=== PATIENT | male | born 1945 | race Caucasian/White ===

== ENCOUNTER 2016-11-11 21:03 | Emergency (ER) | payer OTHER ==
[~2016-11-11] VITALS: Ht 165.1 cm; Wt 73.0 kg
[2016-11-11 22:13] VITALS: Ht 165.1 cm; Wt 73.0 kg
[2016-11-12] MEDS ORDERED: GABA100C14 PO (00:13)
[2016-11-12] MEDS ORDERED: GLIP5TAB13 PO (00:13)
[2016-11-12] MEDS ORDERED: METF500T4 PO (00:13)
[2016-11-12] MEDS ORDERED: LOSA25TA5 PO (00:13)
--- NOTE | 2016-11-12 00:14 | ERD ---
ER Documentation Chief Complaint Date/Time DATE: 11/12/16 TIME: 00:11 Chief Complaint right eye redness with green discharge since last night, cough x 1 wk HPI 71-year-old male presents to emergency department for multiple complaints. Patient is complaining of right eye redness with discharge from the right eye, started yesterday, patient denies any eye pain. Patient woke up this morning with both eyes stuck together. Patient denies any foreign body sensation in the eye. Patient denies any vision changes. Patient did not have any trauma in the eye. Patient is complaining of dry cough for one, does not cough up any phlegm or blood. Patient does not have any chest pain or palpitations. Patient does not have any shortness breath or wheezing. Patient does not have any fever or chills. Patient does not have any leg swelling. Patient did not take any medication stop and symptoms. ROS All systems reviewed and are negative except as per history of present illness. Medications Home Meds Reported Medications Gabapentin* (Gabapentin*) Unknown Strength Capsule, PO TID, #180 CAP 11/12/16 Losartan Potassium* (Losartan Potassium*) Unknown Strength Tablet, PO DAILY, TAB 11/12/16 Glipizide* (Glipizide*) Unknown Strength Tablet, PO BID, TAB 11/12/16 Metformin* (Glucophage*) Unknown Strength Tab, PO BID, #20 TAB 11/12/16 Allergies Allergies: Coded Allergies: codeine (Unverified Allergy, Mild, ANXIETY, 11/11/16) PMhx/Soc History of Surgery: Yes (hernia repair, TURP) Hx Cardiac Disorders: Yes (hypertension) Hx Miscellaneous Medical Probl: Yes (diabetes) FmHx Family History: No coronary disease, No diabetes, No other Physical Exam Vitals Vital Signs Date Time Temp Pulse Resp B/P Pulse Ox O2 Delivery O2 Flow Rate FiO2 11/11/16 22:13 97.6 85 20 159/74 97 Physical Exam GENERAL: The patient is well developed and appropriate for usual state of health, in no apparent distress. HEENT: Atraumatic. Right eye conjunctiva is noted to be injected and erythematous with purulent discharge from the right eye, no tearing noted. Left eye conjunctiva is normal. Bilateral eyes are PERRL EOM intact. Ears: Normal tympanic membrane, no erythema or bulging. No ear canal swelling. No ear discharge. Nose: Erythematous nasal turbinates with clear nasal discharge. Throat: oropharynx erythematous with postnasal drip. No tonsillar swelling or tonsillar exudates. No lymphadenopathy. CHEST: Clear to auscultation bilaterally. There are no rales, wheezes or rhonchi. HEART: Regular rate and rhythm. No murmurs, clicks, rubs or gallops. No S3 or S4. ABDOMEN: Soft, nontender and nondistended. Good bowel sounds. No rebound or guarding. No gross peritonitis. No gross organomegaly or masses. No Santizo sign or McBurney point tenderness. BACK: No midline or flank tenderness. EXTREMITIES: Equal pulses bilaterally. There is no peripheral clubbing, cyanosis or edema. No focal swelling or erythema. Full range of motion. Grossly neurovascularly intact. NEURO: Alert and oriented. Cranial nerves 2-12 intact. Motor strength in all 4 extremities with 5/5 strength. Sensation grossly intact. Normal speech and gait. SKIN: There is no apparent rash or petechia. The skin is warm and dry. HEMATOLOGIC AND LYMPHATIC: There is no evidence of excessive bruising or lymphedema. No gross cervical, axillary, or inguinal lymphadenopathy. Results 24 hrs PROCEDURE: XR Chest. CLINICAL INDICATION: Cough. TECHNIQUE: PA and Lateral views of the chest were obtained. COMPARISON: None. FINDINGS: Cardiomegaly and atherosclerotic calcifications in the thoracic aorta. Likely degree of hyperinflation of COPD with changes of centrolobular emphysema. The lungs are otherwise clear. No signs of pleural fluid or pneumothorax are seen. The osseous structures and soft tissues are unremarkable. IMPRESSION: 1. Cardiomegaly and atherosclerotic calcifications in the thoracic aorta. 2. Otherwise, no evidence for active cardiopulmonary disease. RPTAT: [facility] Physician bEer Date Time Electronically viewed and signed by Physician Eber on 11/12/2016 00:36 RS/ CC: DANITA JORDAN CONCESSION MANAGER Procedures/MDM Medical Decision Making: Patient symptoms are most likely consistent with acute bronchitis, which viral in origin. But infection, considering patient is diabetic high-risk patient, patient will be treated with azithromycin. There is low suspicion for Pneumonia at this time since patients lungs sounds are clear, patient O2 saturation is normal and patient doesnt show any respiratory distress. Patients chest xray doesnt show infiltrates or any other cardiopulmonary emergencies at this time. There is low suspicion for other cardiopulmonary emergencies at this time such as CHF, Pulmonary Embolism, Pneumothorax, Aortic Aneurysm or any other cardiopulmonary emergencies at this time. There is low suspicion for sepsis. Patient appears well and is hemodynamically stable. Fever is controlled with medicines. Patient's right eye redness most likely consistent with acute bacterial conjunctivitis, no foreign body sensation, no symptoms of any eye emergencies, patient does not have any vision changes. Disposition: Home. Condition: Stable Prescriptions: Polytrim eyedrops, guaifenesin DM, Zyrtec, albuterol, azithromycin Instructions: Patient is advised to take medications as prescribed. Patient is advised to rest. Patient advised to increase fluid intake, do humidifier at home and if possible, do salt water gargles. Patient is advised that if symptoms are worse, shortness of breath, uncontrolled fever, stridor, vomiting, worst signs and symptoms to return to emergency department immediately. Otherwise, patient is advised to follow up with primary doctor in 5-7 days. Departure Diagnosis: Primary Impression: Acute bronchitis Bronchitis organism: unspecified organism Qualified Code: J20.9 - Acute bronchitis, unspecified organism Additional Impression: Acute bacterial conjunctivitis of right eye Condition: Stable Patient Instructions: Bronchitis, Antiobiotic Treatment (Adult), Conjunctivitis , Bacterial Additional Instructions: Patient is advised to take medications as prescribed. Patient is advised to rest. Patient advised to increase fluid intake, do humidifier at home and if possible, do salt water gargles. Patient is advised that if symptoms are worse, shortness of breath, uncontrolled fever, stridor, vomiting, worst signs and symptoms to return to emergency department immediately. Otherwise, patient is advised to follow up with primary doctor in 5-7 days. DANITA JORDAN NP Nov 12, 2016 00:14
--- NOTE | 2016-11-12 00:37 | RADRPT ---
PROCEDURE: XR Chest. CLINICAL INDICATION: Cough. TECHNIQUE: PA and Lateral views of the chest were obtained. COMPARISON: None. FINDINGS: Cardiomegaly and atherosclerotic calcifications in the thoracic aorta. Likely degree of hyperinflat ion of COPD with changes of centrolobular emphysema. The lungs are otherwise clear. No signs of pleu ral fluid or pneumothorax are seen. The osseous structures and soft tissues are unremarkable. IMPRESSION: 1. Cardiomegaly and atherosclerotic calcifications in the thoracic aorta. 2. Otherwise, no evidence for active cardiopulmonary disease. RPTAT: [facility] Physician Eber Date Time Electronically viewed and signed by Physician Eber on 11/12/2016 00:36 RS/
[2016-11-12] MEDS ORDERED: AZIT250T94 PO (01:47)
[2016-11-12] MEDS ORDERED: ALBU8.5H3 INH (01:47)
[2016-11-12] MEDS ORDERED: GUAI120S26 PO (01:47)
[2016-11-12] MEDS ORDERED: CETI10CA PO (01:47)
[2016-11-12] MEDS ORDERED: POLY10DR19 RIGHT EYE (01:47)
[2016-11-12 02:02] VITALS: BP 149/71; PULSE 79; RESP 18; TEMP 97.9
== END 2016-11-12 02:02 | disposition home or self-care (01) ==
LOC: FTE 21:03
DX: J20.9 Acute bronchitis, unspecified (principal); H10.31 Unspecified acute conjunctivitis, right eye; I10 Essential (primary) hypertension; E11.9 Type 2 diabetes mellitus without complications; Z79.84 Long term (current) use of oral hypoglycemic drugs
CPT/HCPCS: 71020; Z7502

== ENCOUNTER 2019-05-13 19:55 | Emergency (ER) | payer OTHER ==
[~2019-05-13] VITALS: Ht 167.6 cm; Wt 65.0 kg
[~2019-05-13 19:55] MED LIST: ACET325T33 PO; ALBU8.5H8 INH; AMOX1TAB9 PO; AZIT250T PO; CETI10CA PO; GABA100C14 PO; GLIP5TAB13 PO; GUAI120S25 PO; LOSA25TA12 PO; METF-849 PO; POLY10DR19 RIGHT EYE
[2019-05-13 20:00] VITALS: BP 199/104; PULSE 95; RESP 20; Ht 167.6 cm; Wt 65.0 kg
[2019-05-13] MEDS ORDERED: ACETAMINOPHEN 500 MG TAB PO STA (21:02)
[2019-05-13] MEDS ORDERED: LIDOCAINE 2%/EPI MPF (SDV) 20 ML VIAL INJ STA (21:02)
[2019-05-13] MEDS ORDERED: DIPHTH/TET/ACEL PERTUSS (ADULT) 0.5 ML VIAL IM* ONE (21:30)
--- NOTE | 2019-05-13 22:35 | ERD ---
ER Documentation Chief Complaint Chief Complaint BIT LEFT HAND BY DOG. BLEEDING CONTROLLED. DOG VACCINATION STATUS UNKNOWN. HPI Patient is 74-year-old male presented to ED secondary to a dog bite to the right thumb. Patient states he was walking outside and the dog bit him in his hand. The dog is his neighbor's dog they are unsure of the vaccination status but believes the dog is well kept and is mainly indoor dog. Patient has a past medi izzy history of high blood pressure and diabetes the patient's vitals are within normal limits and the laceration appears to be superficial on the medial aspect of his left thumb approximately 3 cm with a second laceration approximately 2 cm. The patient has full function of the extremity and bleeding is minimal. Patient does not remember when his last tetanus vaccination was. ROS All systems reviewed and are negative except as per history of present illness. Medications Home Meds Active Scripts Acetaminophen* (Tylenol*) 325 Mg Tablet, 1 TAB PO Q6 PRN for PAIN AND OR ELEVATED TEMP, #20 TAB Prov:PAUL SANDOVAL PA-C 05/13/19 Amoxicillin/Potassium Clav (Amox-Clav 500-125 mg Tablet) 500-125 mg Tab, 1 TAB PO BID for 7 Days, TAB Prov:PAUL SANDOVAL PA-C 05/13/19 Polymyxin B Sulfate-TMP* (Polymyxin B-TMP Eye Drops*) 10 Ml Drops, 1 DROP RIGHT EYE QID for 7 Days, EA Prov:DANITA JORDAN NP 11/12/16 Azithromycin* (Zithromax*) 250 Mg Tablet, 250 MG PO .ZPACK DIRECTED, #6 TAB TAKE 500 MG (2 TABS) THE FIRST DAY THEN 250 MG (1 TAB) DAYS 2-5 Prov:DANITA JORDAN NP 11/12/16 Cetirizine Hcl* (Zyrtec*) 10 Mg Capsule, 10 MG PO DAILY, #30 TAB.CHEW Prov:DANITA JORDAN NP 11/12/16 Pccmhmloqkm-P-Eahglrqsng Hb* (Guaifenesin* DM Syrup) 120 Ml Syrup, 10 ML PO Q4H PRN for COUGH, #120 ML Prov:DANITA JORDAN NP 11/12/16 Albuterol Sulfate* (Proair HFA*) 8.5 Gm Hfa.aer.ad, 2 PUFF INH Q4H PRN for WHEEZING AND SOB, #1 INHALER Prov:DANITA JORDAN NP 11/12/16 Reported Medications Gabapentin* (Gabapentin*) Unknown Strength Capsule, PO TID, #180 CAP 11/12/16 Losartan Potassium* (Losartan Potassium*) Unknown Strength Tablet, PO DAILY, TAB 11/12/16 Glipizide* (Glipizide*) Unknown Strength Tablet, PO BID, TAB 11/12/16 Metformin* (Glucophage*) Unknown Strength Tab, PO BID, #20 TAB 11/12/16 Allergies Allergies: Coded Allergies: codeine (Unverified Allergy, Mild, ANXIETY, 11/11/16) PMhx/Soc History of Surgery: Yes (hernia repair, TURP) Hx Cardiac Disorders: Yes (hypertension) Hx Miscellaneous Medical Probl: Yes (diabetes) Hx Alcohol Use: No Hx Substance Use: No Hx Tobacco Use: No Smoking Status: Never smoker FmHx Family History: No diabetes, No coronary disease, No other Physical Exam Vitals Vital Signs Date Temp Pulse Resp B/P (MAP) Pulse Ox O2 O2 Flow FiO2 Time Delivery Rate 05/13/19 98.3 95 20 199/104 99 20:00 (135) Physical Exam GENERAL: Moderate Distress CHEST: Clear to auscultation bilaterally. There are no rales, wheezes or rhonchi. HEART: Regular rate and rhythm. No murmurs, clicks, rubs or gallops. EXTREMITIES: mild swelling and deformity to right thumb with 2 lacerations,3 cm and 2 cm. Both lacerations are very superficial and do not extend into the muscle or tendons. Patient has good neurovascular examination with no pain on palpation NEUROLOGIC: Motor strength is 5 out of 5 strength in right upper extremity sensation grossly intact. Results 24 hrs Current Medications Medications Dose Sig/Anjali Start Time Status Last (Trade) Ordered Route PRN Stop Time Admin Dose Reason Admin 500 mg ONCE STAT 05/13/19 DC 05/13/19 Acetaminophen PO 21:02 05/13/19 21:21 (Tylenol 21:05 Tab) Diphtheria/ 0.5 ml ONCE ONCE 05/13/19 DC 05/13/19 Tetanus/Acell IM* 21:30 05/13/19 21:22 Pertussis 21:31 (Adacel) Lidocaine/ 20 ml ONCE STAT 05/13/19 DC Epinephrine INJ 21:02 05/13/19 (Xylocaine 21:05 2%/ Epi Mpf(Sdv)) Procedures/MDM ED course: The patient was stable throughout the ED course. The patient and/or family informed of laboratory and diagnostic imaging results throughout the ED course. Procedures: LACERATION: The patient was verbally consented prior to procedure. Patient was explained the risks, benefits and alternatives to this procedure. Location: Right thumb Length: 3 cm and 2 cm Anesthesia: local 1% lidocaine, 5 cc Inspection: The wound was thoroughly explored and no foreign bodies, deep tissue, tendon or structural injuries were noted. Repair: The area was prepared and draped in the usual sterile manner with the wound exposed. A 3 cm medial aspect of thumb was repaired with a total of 5 40 nonabsorbable simple interrupted. The second 2 cm laceration was closed with 2 40 nonabsorbable sutures were placed with good wound closure and wound approximation. Bleeding was minimal. The patient tolerated the procedure well with no complications. The wound was dressed with bacitracin and sterile gauze. The patient was neurovascularly intact post-procedure. Post-procedural wound care was discussed with the patient. The patient was advised that if they develop fever, chills, discharge or discomfort to return to the ER immediatly. I discussed with the patient the importance of having a wound check in 2 days and the importance of having the sutures removed within the appropriate time. SPLINT APPLICATION: The patient was verbally consented at bedside prior to splint application. Patient was explained the risks, benefits and alternatives to this procedure. The patient was neurovascularly intact prior to and status post application of the splint. The patient tolerated the procedure well with no complications. Splint type: Metal splint Extremity: Right thumb Indication: Post suture placement secondary to right I discussed with the patient/family that at anytime if the splint becomes too constricted or if they have loss of sensation, or unable to move any limbs distal to the splint, develop fever, or any discomfort that they should eturn to the ER immdiatly. I educated the patient on risk of compartment syndrome with splint applications. Medications given in ER: Acetaminophen Tdap Patient tolerated medication well with no adverse reactions. Patient reported improvement in pain. Medical decision making: Patient 74-year-old male who was bitten by a dog in the right hand. Patient is to lacerations 1 3 cm the second 2 cm both on the medial aspect of his right thumb. Both lacerations are very superficial and do not extend into the ligaments tendons or muscles. The patient has full function of his thumb and neurovascular exam is unremarkable. The wound was anesthetized and thoroughly irrigated no signs of foreign body retainment. The patient lacerations were repaired with 40 nonabsorbable sutures. The patient was given a Tdap vaccination and was sent home on Augmentin because he was bitten by a dog. This time I have low suspicion for fracture dislocation and that is why an x-ray was not obtained. The patient sutures were repaired in sterile field and splinted in a comfortable position. Advised the patient to keep an eye open for pain swelling in the extremity and he should return immediately if either happens. At this time I have low suspicion for compartment syndrome, osteomyelitis, sepsis. Advised patient needs return in 2 days for a wound check in 7 days from today for suture removals. Advised patient needs follow-up with primary care provider in 1 to 2 days regarding this visit. I advised the patient to return to ER immediately if pain worsens or any worsening symptoms occur. The patient had no further questions upon discharge in agreement treatment plan Prescription for home: Augmentin Acetaminophen I have discussed with the patient proper use and common side effects to expert with the medication . I advised the patient/family to speak with the pharmacist dispensing the medication to be advised of any potential drug interactions with other medication or supplements they may be taking. Discharge: At this time, patient is stable for discharge and outpatient management. I have instructed the patient to follow-up with his\her primary care physician in 1 to 2 days. I have discussed with the patient the possibility of needing to see a specialist for further work-up and imaging studies if symptoms persist. I have instructed the patient to promptly return to the ER for any new or worsening symptoms including increased pain, fever, nausea, vomiting, weakness or LOC. The patient and\or family expressed understanding of and agreement with this plan. All questions were answered. Home care instructions were provided. Disclaimer: Inadvertent spelling and grammatical errors are likely due to EHR\dictation software use and do not reflect on the overall quality of patient care. Also, please note that the electronic time recorded on the note does not necessarily reflect the actual time of the patient encounter. Departure Diagnosis: Primary Impression: Bite by animal Additional Impression: Laceration Condition: Stable Patient Instructions: Animal Bite, General, Laceration, Hand Referrals: [facility] YOU HAVE RECEIVED A MEDICAL SCREENING EXAM AND THE RESULTS INDICATE THAT YOU DO NOT HAVE A CONDITION THAT REQUIRES URGENT TREATMENT IN THE EMERGENCY DEPARTMENT. FURTHER EVALUATION AND TREATMENT OF YOUR CONDITION CAN WAIT UNTIL YOU ARE SEEN IN YOUR DOCTORS OFFICE WITHIN THE NEXT 1-2 DAYS. IT IS YOUR RESPONSIBILITY TO M SATURNINO AN APPOINTMENT FOR FOLOW-UP CARE. IF YOU HAVE A PRIMARY DOCTOR --you should call your primary doctor and schedule an appointment IF YOU DO NOT HAVE A PRIMARY DOCTOR YOU CAN CALL OUR PHYSICIAN REFERRAL HOTLINE AT IF YOU CAN NOT AFFORD TO SEE A PHYSICIAN YOU CAN CHOSE FROM THE FOLLOWING [facility] [address] [facility]. [facility] [address] [facility] [address] [facility] [address] [facility] [address] [facility] [address] [facility]. [facility] YOU HAVE RECEIVED A MEDICAL SCREENING EXAM AND THE RESULTS INDICATE THAT YOU DO NOT HAVE A CONDITION THAT REQUIRES URGENT TREATMENT IN THE EMERGENCY DEPARTMENT. FURTHER EVALUATION AND TREATMENT OF YOUR CONDITION CAN WAIT UNTIL YOU ARE SEEN IN YOUR DOCTORS OFFICE WITHIN THE NEXT 1-2 DAYS. IT IS YOUR RESPONSIBILITY TO MAKE AN APPOINTMENT FOR FOLOW-UP CARE. IF YOU HAVE A PRIMARY DOCTOR --you should call your primary doctor and schedule and appointment IF YOU DO NOT HAVE A PRIMARY DOCTOR YOU CAN CALL OUR PHYSICIAN REFERRAL HOTLINE AT . IF YOU CAN NOT AFFORD TO SEE A PHYSICIAN YOU CAN CHOSE FROM THE FOLLOWING [facility] INSTITUTIONS: [facility] [address] [place] [address] [facility] [address] [place] [address] [facility] [address] [place] [address] [facility] Urgent Care 7 a.m.- 11 p.m. Every Day of the Week NO APPOINTMENT OR AUTHORIZATION NEEDED Additional Instructions: Llame al doctor ENMA y zach tima ALINE PARA DENTRO DE 1-2 ROSAS.Dgale a la secretaria que nosotros le instruimos hacer esta aline.Avise o llame si harrison condicin se empeora antes de la aline. Regresa aqui si peor o no mejor. WOUND CHECK:CONSULTE A HARRISON MDICO EN 2 chavez para yenny HARRISON HERIDA. SUTURE REMOVAL:CONSULTE A HARRISON MDICO PARA SACAR HARRISON PUNTOS.PARA LA SHANNAN 5-6 chavez.EN OTRO LUGAR 7-10 chavez. PAUL SANDOVAL PA-C May 13, 2019 22:35
== END 2019-05-13 22:26 | disposition home or self-care (01) ==
LOC: FTE 19:55
DX: S61.011A Laceration without foreign body of right thumb without damage to nail, initial encounter (principal); I10 Essential (primary) hypertension; E11.9 Type 2 diabetes mellitus without complications; W54.0XXA Bitten by dog, initial encounter; Y92.89 Other specified places as the place of occurrence of the external cause; Z79.84 Long term (current) use of oral hypoglycemic drugs; Z23 Encounter for immunization
CPT/HCPCS: 12002; 90471; 90715; Z7502; Z7610